=== PATIENT | male | born 1970 | race Two or more races ===

== ENCOUNTER 2022-02-26 07:35 | Day surgery (SDC) | payer SELFPAY ==
[2022-02-21 19:16] VITALS: BMI 34.9
[2022-02-26 08:07] VITALS: TEMP 97.5
[2022-02-26] MEDS ORDERED: HEPARIN NA (PORCINE) 5,000 UNITS/ML 1ML VIAL ONE (08:14)
[2022-02-26] MEDS ORDERED: PROPOFOL 20 ML ONE ×7 (08:30→13:08)
[2022-02-26] MEDS ORDERED: MIDAZOLAM HCL 2 MG/2 ML SINGLE DOSE VIAL ONE (08:30)
[2022-02-26] MEDS ORDERED: ROCURONIUM BROMIDE 50 MG/5 ML SYRINGE ONE ×2 (08:30→09:35)
[2022-02-26] MEDS ORDERED: SUCCINYLCHOLINE CHLORIDE 200 MG/10 ML SYRINGE ONE (08:30)
[2022-02-26] MEDS ORDERED: LIDOCAINE HCL 2% JELLY (5 ML/TUBE) ONE (08:32)
[2022-02-26] MEDS ORDERED: KETOROLAC TROMETHAMINE 30 MG/1 ML VIAL ONE (09:06)
[2022-02-26] MEDS ORDERED: DEXAMETHASONE SOD PHOSPHATE 4 MG/1 ML VIAL ONE (09:06)
[2022-02-26] MEDS ORDERED: ONDANSETRON 4 MG/2 ML VIAL ONE (09:06)
[2022-02-26] MEDS ORDERED: ceFAZolin SODIUM 1 GM VIAL ONE (09:06)
[2022-02-26] MEDS ORDERED: NITROGLYCERIN 2% OINTMENT - 1GM PACKET TD ONE (12:34)
[2022-02-26] MEDS ORDERED: NEOSTIGMINE METHYLSULFATE 0.5 MG/1 ML - 10 ML MDV ONE (13:10)
[2022-02-26] MEDS ORDERED: GLYCOPYRROLATE 0.2 MG/1 ML VIAL ONE (13:10)
[2022-02-26] MEDS ORDERED: HYDROmorphone HCL/PF 1 MG/ML VIAL ONE (13:18)
[2022-02-26] MEDS ORDERED: PROMETHAZINE HCL 25 MG/1 ML VIAL IVPUSH PRN (13:41)
[2022-02-26] MEDS ORDERED: ONDANSETRON 4 MG/2 ML VIAL IVPUSH PRN (13:41)
[2022-02-26] MEDS ORDERED: oxyCODONE HCL 5 MG TABLET PO PRN ×4 (13:41→13:42)
[2022-02-26] MEDS ORDERED: ONDANSETRON 4 MG/2 ML VIAL IVPB PRN (13:42)
[2022-02-26] MEDS ORDERED: LACTATED RINGERS SOLUTION 1,000 ML IV SCH (13:45)
[2022-02-26 14:58] VITALS: RESP 16
[2022-02-26 15:52] VITALS: BP 113/61; PULSE 80
== END 2022-02-26 16:57 | disposition home or self-care (01) ==
LOC: FASU 07:35
PROVIDERS: ATTEND Plastic Surgery
PROC: 0H0V0ZZ Alteration of Bilateral Breast, Open Approach (ICD-10-PCS; principal; 2022-02-26 09:23)
PROC: 0J063ZZ Alteration of Chest Subcutaneous Tissue and Fascia, Percutaneous Approach (ICD-10-PCS; 2022-02-26 09:23)
DX: N62 Hypertrophy of breast (principal); N64.81 Ptosis of breast; E65 Localized adiposity
CPT/HCPCS: 82962; 88305-TC; 94760; J1644